=== PATIENT | female | born 1940 | race Two or more races ===

== ENCOUNTER 2023-05-19 14:18 | Emergency (ER) | payer MEDICARE, OTHER ==
[~2023-05-19] VITALS: Ht 147.3 cm; Wt 49.6 kg
[2023-05-19] MEDS: HYDROcodone-ACET 10/325MG TAB PO ONE (18:00)
[2023-05-19] MEDS ORDERED: HYDR-4798 PO (18:03)
[2023-05-19 18:29] VITALS: BP 150/90; PULSE 89; RESP 18; O2SAT 97
== END 2023-05-19 18:38 | disposition home or self-care (01) ==
LOC: ER 14:18
DX: G89.28 Other chronic postprocedural pain (principal); M79.662 Pain in left lower leg; Z88.0 Allergy status to penicillin
CPT/HCPCS: 73562; 93971